=== PATIENT | female | born 1990 | race Caucasian/White ===

== ENCOUNTER → 2022-04-25 | Outpatient (CLI) | payer OTHER, SELFPAY | END | disposition home or self-care (01) | PROVIDERS: PCP Student in an Organized Health Care Education/Training Program; Visit Provider Otolaryngology Otolaryngology/Facial Plastic Surgery | DX: J01.90 Acute sinusitis, unspecified (principal) | CPT/HCPCS: 87070; 87205 ==

== ENCOUNTER → 2022-05-09 | Outpatient (CLI) | payer OTHER, SELFPAY ==
--- NOTE | 2022-05-09 12:48 | CT_ITS ---
STUDY: CT FACIAL BONES WITHOUT CONTRAST REASON FOR EXAM: Female, 32 years old. SINUSITIS RADIATION DOSAGE (If Supplied By Facility): CTDIvol = ( 33.06 ) mGy, DLP = ( 833.85 ) mGycm TECHNIQUE: The patient was scanned in a multi detector CT scanner. Sagittal and coronal images were reconstructed. Individualized dose optimization techniques were used for this CT. COMPARISON: None. FINDINGS: Normal soft tissue structures. Normal orbital baptiste and orbital contents. Normal nasal bones and anterior nasal spine. Normal facial bones. There is no demonstrated fracture. There is opacification of the right maxillary sinus. Air-fluid level in the left maxillary sinus. There is compromise of the ostiomeatal complexes bilaterally due to mucosal hypertrophy. Partial opacification of the sphenoid sinus as well as the ethmoid sinuses and frontal sinuses. There is hypertrophy of the inferior turbinate on the right side. There is nasal septal deviation towards the left side of the midline. CT/Sinus/Facial Bone IMPRESSION: NINO sinusitis. Nasal septal deviation towards the left side of the midline. Electronically Signed: Tom Castelan MD at 13:14 EDT ,
== END | disposition home or self-care (01) ==
LOC: CT 12:46
PROVIDERS: PCP Student in an Organized Health Care Education/Training Program; Referring Provider Otolaryngology Otolaryngology/Facial Plastic Surgery; Visit Provider Otolaryngology Otolaryngology/Facial Plastic Surgery
DX: J32.9 Chronic sinusitis, unspecified (principal)
CPT/HCPCS: 70486

== ENCOUNTER 2022-10-15 05:56 | Day surgery (SDC) | payer OTHER, SELFPAY ==
[2022-10-15] VITALS (8 sets, daily range): BP systolic 111–139; BP diastolic 71–92; PULSE 53–85; RESP 14–18; TEMP 36.4–37.2; O2SAT 99–100; BMI 25.2
--- NOTE | 2022-10-15 | ETH_PTH ---
PATIENT: KYLEIGH WILKINSON LOC: [facility] [place] U#:[id number] AGE/SX: 32/F ROOM: RE10/15/[address]: Dr. Seng Zapien MD : 1990 BED: DIS: 10/15/2022 SPEC #: [id number] RECD: 10/15/22 13:10 STATUS: LALA REElin #: [id number] JUDY: 10/15/22 00:[address]: Seng Zapien DEPT: SURGICAL PATHOLOGY RECD BY: Jacinto Fay ENTERED: 10/15/22 13:11 SP TYPE: ETH TISS OTHR DR: Dr. Matthieu Espinoza DO Tissues: A - Ethmoid sinus, NOS B - Ethmoid sinus, NOS C - Nasal septum, NOS Procedures: Decalcification bone/plaque Surgery Specimen Level III HEADER OPERATION: Septoplasty, functional endoscopic sinus surgery, Navigation PRE-OP DIAGNOSIS: Deviated nasal septum, chronic sinusitis TISSUE SUBMITTED: A ? Right nasal contents, B ? Left nasal contents, C - Septum MICROSCOPIC DIAGNOSIS A. Right nasal contents, curettings: Consistent with chronic sinusitis. Fragments of bone with no pathologic change. B. Left nasal contents, curettings: Consistent with chronic sinusitis. Fragments of bone with no pathologic change. C. Nasal septum, septoplasty: Fragments of respiratory mucosa with mild chronic inflammation. Unremarkable fragments of bone and cartilage (clinically deviated septum). AM:андрей 10/18/2022 MICROSCOPIC DESCRIPTION Slides are reviewed. GROSS DESCRIPTION A - Received in fixative is one container labeled with the patient's name and designated right nasal contents. The specimen consists of multiple fragments of hemorrhagic soft tissue mixed with fragments of bone that in aggregate measure 5.0 x 3.0 x 0.3 cm. The specimen is totally submitted in two cassettes after decalcification. B - Received in fixative is one container labeled with the patient's name and designated left nasal contents. The specimen consists of multiple fragments of hemorrhagic soft tissue mixed with fragments of bone that in aggregate measure 2.5 x 2.0 x 0.2 cm. The specimen is totally submitted in two cassettes after decalcification. C - Received in fixative is one container labeled with the patient's name and designated septum. The specimen consists of multiple irregular fragments of bone and cartilage that in aggregate measure 1.5 x 1.5 x 0.2 cm. The specimen is totally submitted in one cassette after decalcification. / SJ:андрей 10/15/2022 TC:3 CPT: 87598 x3, 31927 x3
[2022-10-15 06:47] LABS: Internal QC Validated? YES +Cl - CLEAR BKGD; Pregnancy, Urine Negative Negative
[2022-10-15] MEDS: Lactated Ringers 1,000 ML 15 ML IV (06:47)
--- NOTE | 2022-10-15 07:44 | DS.PCM_ITS ---
Providers Primary Care Physician: Dr. Matthieu Espinoza DO Reason For Visit: SEPTOPLASTY, FESS NAVIGATION Medications at Discharge Home Medications naproxen sodium 550 mg tablet 550 mg PO Q12H PRN PRN Pain #16 tabs 12/25/13 cholecalciferol (vitamin D3) 25 mcg (1,000 unit) capsule (Vitamin D3) 25 mcg PO DAILY 10/08/22 cyanocobalamin (vitamin B-12) 50 mcg tablet (Vitamin B-12) 50 mcg PO DAILY 10/08/22 loratadine 10 mg tablet (Claritin) 10 mg PO DAILY 10/08/22 magnesium 250 mg tablet 250 mg PO DAILY 10/08/22 multivitamin 1 tab PO DAILY 10/08/22 Weight / BMI Weight Weight: 64.682 kg Body Mass Index (BMI) 25.2 ABG / Lab / Microbiology Data Laboratory: Laboratory Results - last 24 hr 10/15/22 06:30: Urine Test Negative D/C Instructions Discharge Diet: No restrictions Additional Activity Instructions: NO noseblowing Additional Dressing/Incision Instructions: Start irrigation tomorrow. Irrigate 4-5 x/day Please Follow Up With: Seng Zapien MD When: next week Meaningful Use Info Meaningful Use Diagnoses (Choose all that apply): None applicable Discharge Plan Admission Attending Provider: Seng Zapien Primary Care Provider: Matthieu Espinoza Discharge Orders/Prescriptions Prescriptions: No Action naproxen sodium 550 MG tablet 550 mg PO Q12H PRN PRN (Reason: Pain) Qty: 16 0RF multivitamin Tablet 1 tab PO DAILY Vitamin B-12 50 mcg Tablet 50 mcg PO DAILY magnesium 250 mg Tablet 250 mg PO DAILY loratadine [Claritin] 10 mg Tablet 10 mg PO DAILY cholecalciferol (vitamin D3) [Vitamin D3] 25 mcg (1,000 unit) Capsule 25 mcg PO DAILY Other Ambulatory Orders: ,Urine (Routine) Timeframe: 20221015 Facility: [facility] - Location: Laboratory Ordered By: Dr. Reece Najera Referrals / Follow Up: Matthieu Espinoza DO [Primary Care Provider] - Disposition Disposition (needs filled in before D/C Order can be placed): Home, Self Care
[2022-10-15] MEDS: Oxymetazoline 0.05% 1 SPRAY SPRAY.BTL 15 SPRAY (08:15)
[2022-10-15] MEDS: Lidocaine 1% /Epi 1:100 (50ml) 50 ML VIAL (09:10)
--- NOTE | 2022-10-15 09:15 | PCM.OPRPT ---
Report of Operation Date of Procedure: 10/15/22 Pre-Operative Diagnosis: chronic sinusitis deviated septum Post-Operative Diagnosis: same Surgery/Procedure Performed:: bilateral total ethmoidectomy bilateral maxillary antrostomy septoplasty use of navigation Surgeon: Seng Zapien Type of Anesthesia: General Anesthesiologist: Reece Najera Estimated Blood Loss (mL): 20 cc Description of Procedure: The patient was taken to the operating room on 10/15/22. She was placed in supine position on the operating table. She was given sufficient general endotracheal anesthesia. The table was elevated 30 degrees. The nose was draped sterilely. The navigation system was placed and verified per protocol and found to be accurate. 0 and 30 degrees rigid nasal endoscopes were used throughout the entire case. The middle turbinate uncinate process were injected with 1% lidocaine with epinephrine bilaterally. The right middle turbinate was medialized with a [place] elevator. A ball-tipped sinus seeker was placed into the patient's maxillary sinus. The uncinate process was taken down using a microdebrider. The antrostomy was created with a back biter. Next, the ethmoid bulla was opened with a small curette. Anterior and posterior ethmoidectomy were then carried out using curette, sinus shaver and 45 degree Blakesley Case forceps. Ethmoid cells were verified for relation to the skull base and orbit prior to being entered with the navigation system. I then placed Afrin pledgets into the sinonasal cavity. A right hemitransfixion incision was made with a 15 blade. The mucoperichondrium was elevated off of the left-hand side of the septum with a [place] elevator. An anterior and posterior tunnel were created in this fashion. The bony cartilaginous junction was with a [place] elevator. A posterior tunnel was created on the right side developed by elevating the mucoperichondrial with a [place]. The deviated portions of bony septum removed using open Yosef forceps. Afrin was used for hemostasis as well as Harish powder. Next attention was turned to the left side. The middle turbinate was medialized with a [place] elevator. The uncinate process was taken down using a sinus shaver. In doing so, the maxillary antrostomy was created. The ethmoid bulla was opened with a small curette. Anterior posterior ethmoidectomy were then carried out using a sinus shaver curette and Blacarleeley Case forceps. Ethmoid cells were verified for relation to the skull base and orbit prior to being entered with the navigation system. Hemostasis was then achieved using Afrin pledgets. The pledgets were then removed bilaterally and Harish powder was applied bilaterally for absolute hemostasis. The hemitransfixion incision was closed with 4-0 chromic. Carlson nasal splints were applied to each side of the septum and sewn through and through with 3-0 silk. The patient was then awoken and brought to the recovery room in stable condition. Blood loss minima 20 cc. Sponge, needle count, sponge count, were correct at the end of this procedure.
== END 2022-10-15 12:45 | disposition home or self-care (01) ==
LOC: SDC 05:59 → AC 06:01
PROVIDERS: Anesthesiology; PCP Student in an Organized Health Care Education/Training Program; Referring Provider Otolaryngology; Visit Provider Otolaryngology
PROC: (CPT 30520; principal; 2022-10-15 07:00)
DX: J34.2 Deviated nasal septum (principal); J32.9 Chronic sinusitis, unspecified
CPT/HCPCS: 30520; 31255; 31256; 00160; 81025; 88304; 88305; 88311; J7120; J2405

== ENCOUNTER → 2024-01-14 | Outpatient (CLI) | payer OTHER, SELFPAY ==
--- NOTE | 2024-01-14 15:06 | VDLE_ITS ---
Reason For Study: swelling RIGHT LEFT CFV is compressible, spontaneous, phasic, GSV is normal. competent and demonstrates normal CFV is compressible, spontaneous, phasic, augmentation. competent, and demonstrates normal Procedure augmentation. This is a venous duplex using B-mode, color FV is compressible, spontaneous, phasic, flow and spectral Doppler. competent and demonstrates normal Exam performed in department. augmentation. The exam was diagnostic. POP V is compressible, spontaneous, phasic, A preliminary report was called and/or faxed competent and demonstrates normal to Dr. Daley office. augmentation. T/P Trunk is compressible. PTV is compressible. LT PerV is compressible. VL/Venous Duplex US, Unilateral Interpretation Summary Deep veins of the left lower extremity are patent and compressible segmentally. There is no evidence of left lower extremity deep vein thrombosis. The left great saphenous vein christy ears patent and compressible segmentally. Ordering Physician: Florentin Daley Performed By: Delroy Nunez RVT
== END | disposition home or self-care (01) ==
PROVIDERS: PCP Student in an Organized Health Care Education/Training Program; Referring Provider Orthopaedic Surgery; Visit Provider Orthopaedic Surgery
DX: R22.42 Localized swelling, mass and lump, left lower limb (principal)
CPT/HCPCS: 93971

== ENCOUNTER 2024-02-06 14:00 | Outpatient (RCR) | payer OTHER, SELFPAY ==
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
--- NOTE | 2024-03-17 18:02 | HP.PT.NRP ---
Patient Information Patient Information: KYLEIGH WILKINSON was seen in my office for initial evaluation on 01/27/24. The following Plan of Care was established for this patient: POC Established Initial Frequency: 2x /Week Initial Duration: 4 Weeks Anticipated Interventions Patient/Client Instruction: Educate patient on: Benefits of Fitness Program Therapeutic Exercise to Include: Strength training, Endurance training, Balance training, Coordination, Agility training, Body mechanics, Postural training, Flexibilty training, Gait and locomotor training, Neuromotor development, Dynamic Lumbar Stabilization and Scapular Strength/Stabilization For the Purpose of:: To improve muscle performance and motor function Manual Therapy Techniques to Include: Soft tissue mobilization TENS: Yes Cryotherapy (ice pack, ice massage): Yes Thermo therapy (hot pack): Yes Ultrasound (thermal/non thermal): Yes Last Seen Last Seen: This patient was last seen in our office . Pertinent comments regarding their Physical therapy will appear below: Patient has not attended PT in over 30 days, appropriate to continue HEP, follow up as needed. At this point I will be discontinuing this patient from physical therapy. I would be happy to see this patient again in the future if found appropriate by the physician. Thank you! Margie Diaz, REET Balance/Gait/Functional tests Balance/Special Test Scores Oswestry Low Back Score: 13
== END 2024-02-06 19:00 | disposition home or self-care (01) ==
LOC: PT 14:00
PROVIDERS: PCP Student in an Organized Health Care Education/Training Program; Referring Provider Orthopaedic Surgery; Visit Provider Orthopaedic Surgery
DX: M51.16 Intervertebral disc disorders with radiculopathy, lumbar region (principal); M48.061 Spinal stenosis, lumbar region without neurogenic claudication
CPT/HCPCS: 97110; 97162